=== PATIENT | male | born 1975 | race Hispanic/Latino ===

== ENCOUNTER 2024-05-10 23:58 | Emergency (ER) | payer OTHER ==
[~2024-05-10] VITALS: Ht 167.6 cm; Wt 104.3 kg
[2024-05-11 00:06] VITALS: PULSE 86; RESP 19; TEMP 98.4
[2024-05-11] MEDS: KETOROLAC TROMETHAMINE 30 MG/ML VIAL IM STA (00:35)
[2024-05-11] MEDS: LIDOCAINE 4% PATCH TP STA (00:36)
[2024-05-11] MEDS: DEXAMETHASONE 4 MG TAB PO STA (00:36)
[2024-05-11 01:21] LABS: BILIRUBIN,URINE NEGATIVE (NEGATIVE); CLARITY,URINE CLEAR (CLEAR); COLOR,URINE YELLOW (YELLOW); GLUCOSE, URINE NEGATIVE (NEGATIVE); KETONES,URINE NEGATIVE (NEGATIVE); LEUKOCYTE ESTERASE ,URINE NEGATIVE (NEGATIVE); NITRITE,URINE NEGATIVE (NEGATIVE); PH,URINE 5.5 (5 - 7); PROTEIN,URINE DIPSTICK NEGATIVE (NEGATIVE); URINE UROBILINOGEN 0.2 mg/dL (0.2 - 1)
[2024-05-11 02:09] LABS: BACTERIA,URINE MODERATE /HPF; RBC,URINE 0-5 /HPF (0-5); WBC,URINE (MAN) 0-5 /HPF (0-5)
[2024-05-11 02:10] LABS: CALCIUM OXALATE CRYSTALS,UR MODERATE (FEW); EPITHELIAL CELLS,URINE FEW /LPF
[2024-05-11] MEDS ORDERED: CYCLOBENZAPRINE10 MG PO (02:48)
[2024-05-11] MEDS ORDERED: NAPROXEN250 MG PO (02:48)
[2024-05-11 03:10] VITALS: BP 139/85; O2SAT 99
== END 2024-05-11 03:05 | disposition home or self-care (01) ==
LOC: ER 05-11 00:07
DX: M54.50 Low back pain, unspecified (principal)
CPT/HCPCS: 74176; 81001; 99283; J1885; J8540